=== PATIENT | female | born 1990 | race African-American/Black ===

== ENCOUNTER 2019-04-07 17:22 | Emergency (ER) | payer OTHER ==
[~2019-04-07] VITALS: Ht 165.1 cm; Wt 139.3 kg
[2019-04-07 18:15] LABS: ABSOLUTE NEUTROPHILS 5.9 thou/uL (1.4-8.2); BASOPHILS 0.6 % (0.0-2.0); EOSINOPHILS 1.7 % (0.0-3.0); HEMATOCRIT 33.2 % (37.0-47.0); HEMOGLOBIN 10.4 gm/dL (12.0-15.0); LYMPHOCYTES 32.3 % (24.0-44.0); MCHC 31.2 g/dL (28.0-37.0); MCV 73.7 fL (80.0-100.0); MONOCYTES 6.9 % (1.0-8.0); PLATELET COUNT 285 thou/uL (150-400); POLYS 58.5 % (36.0-66.0); RDW 15.3 % (10.5-14.5); WBC 10.1 thou/uL (4.0-11.0)
[2019-04-07 18:22] LABS: CALCIUM 8.8 mg/dL (8.5-10.1); CREATININE 0.7 mg/dL (0.6-1.0); POTASSIUM 3.6 mmol/L (3.5-5.1)
[2019-04-07 18:29] LABS: TOTAL BILIRUBIN 0.3 mg/dL (<0.1-1.0); TOTAL PROTEIN 7.1 g/dL (6.4-8.2)
[2019-04-07 21:37] VITALS: BP 155/73
--- NOTE | 2019-04-08 12:27 | EKG ---
[place] [address] [facility] [employer] [place] [address] ELECTROCARDIOGRAM REPORT Name: TED DURÁN Room #: [facility] Matty#: [id number] ������������������ Admission: 04/07/19 ������������������ Attend Phys: Discharge: 04/07/19 ������������������ Date of : 89 Report #: [id number] ����������������������������������������������������������������� [id number] THIS REPORT FOR: //name// [facility] ED Test Date: 2019-04-07 Test Time: 17:30:36 Pat Name: TED DURÁN Department: Room: Gender: F Wealth Management Director: JOSE : 1990 Requested By: Leila Colby Order Number: [id number] MD: Trace Villalobos Measurements Intervals [place] Rate: 66 P: 54 [place]: 142 QRS: -2 QRSD: 102 T: 1 QT: 426 QTc: 447 Interpretive Statements Sinus rhythm Poor R wave progression No previous ECG available for comparison Electronically Signed On 04-08-2019 12:27:05 CDT by Trace Villalobos [email or web address] ��������������������������������������������� <ELECTRONICALLY SIGNED> ���������������������������������������� By: Trace Villalobos MD, [facility] ��������������������������������������������� 04/08/19 1227 1730 1730 Trace Villalobos MD, FACC /EPI
== END 2019-04-07 22:04 | disposition home or self-care (01) ==
LOC: ER 17:22
PROVIDERS: Physician Assistant
DX: R06.00 Dyspnea, unspecified (principal)